=== PATIENT | male | born 1990 | race Two or more races ===

== ENCOUNTER 2019-01-23 08:13 | Emergency (ER) | payer OTHER ==
[~2019-01-23] VITALS: Ht 185.4 cm; Wt 127.0 kg
[2019-01-23] MEDS ORDERED: KETOROLAC TROMETHAMINE INJ 30 MG/ML VIAL ONE (08:29)
[2019-01-23] MEDS ORDERED: ONDANSETRON HCL/PF 4 MG/2 ML VIAL ONE (08:29)
[2019-01-23] MEDS ORDERED: IV NS 0.9% 1,000 ML BAG IV ONE (08:30)
[2019-01-23] MEDS ORDERED: KETOROLAC TROMETHAMINE INJ 30 MG/ML VIAL IV ONE (08:30)
[2019-01-23] MEDS ORDERED: ONDANSETRON HCL/PF 4 MG/2 ML VIAL IVP ONE (08:30)
--- NOTE | 2019-01-23 08:45 | NUR ---
pt brought in from [facility] home for c/c of lwer back pain radiating to scotal area pt has a history of kidney stones. piv placed medication and fluid given labs sent for processing ultra sound at bedside, pt accompanied with parent pt alert with orientation x 4.
[2019-01-23 08:49] LABS: BASOPHILS % (AUTO) 0.4 % (0.0-2.0); EOSINOPHILS % (AUTO) 0.4 % (0.0-6.0); HEMATOCRIT 45 % (39-51); HEMOGLOBIN 15.1 g/dL (13.5-17.5); MEAN CORPUSCULAR HGB CONC 33 g/dl (31.0-36.0); MEAN CORPUSCULAR VOLUME 89 fL (80-96); MONOCYTES # (AUTO) 0.4 /CMM (0.1-1.30); MONOCYTES % (AUTO) 5.3 % (2.0-12.0); NEUTROPHILS # (AUTO) 6.9 /CMM (1.8-8.9); NEUTROPHILS % (AUTO) 81.9 % (43.0-81.0); PLATELET COUNT (AUTO) 192 /CMM (150-450); RED BLOOD CELL COUNT(AUTO) 5.11 MIL/uL (4.5-6.0); WHITE BLOOD COUNT (AUTO) 8.4 K/uL (4.3-11.0)
[2019-01-23 08:59] LABS: CALCIUM, SERUM 9.1 mg/dL (8.5-10.1); POTASSIUM 3.7 mmol/L (3.5-5.1)
[2019-01-23 09:04] LABS: ALBUMIN 3.8 g/dL (3.4-5.0); BILIRUBIN,DIRECT 0.1 mg/dL (0.0-0.2); BILIRUBIN,TOTAL 0.3 mg/dL (0.2-1.0); TOTAL PROTEIN, SERUM 7.7 g/dL (6.4-8.2)
--- NOTE | 2019-01-23 09:33 | NUR ---
urine sent to lab
[2019-01-23 09:39] LABS: APPEARANCE,URINE Slightly Cloudy (CLEAR); BILIRUBIN,URINE Negative (NEGATIVE); BLOOD, URINE Large Ery/uL (NEGATIVE); COLOR,URINE Yellow (YELLOW); KETONES,URINE Negative (NEGATIVE); LEUKOCYTE ESTERASE ,URINE Negative (NEGATIVE); NITRITE, URINE Negative (NEGATIVE); PROTEIN,URINE 100 mg/dl (NEGATIVE); UGLUCOSE Negative (NEGATIVE); UROBILINOGEN,URINE 0.2 EU/dL (0.2)
[2019-01-23 09:52] LABS: BACTERIA,URINE None seen /HPF (None Seen); RBC,URINE 80-100 /HPF (0-2); SQUAMOUS EPITHELIAL CELL,UR Few /HPF (None Seen); WBC,URINE 0-3 /HPF (0-3)
[2019-01-23] MEDS ORDERED: TAMSULOSIN 0.4 MG CAP.SR.24H PO ONE (10:00)
[2019-01-23] MEDS ORDERED: TAMSULOSIN 0.4 MG CAP.SR.24H ONE (10:00)
--- NOTE | 2019-01-23 10:01 | NUR ---
pt discharged to home given urine strainer and follow up with urologist pt also given sterile specimen cup to place samlpe. pt given aci piv remonved with tip intact
[2019-01-23 10:08] VITALS: BP 112/80
== END 2019-01-23 10:09 | disposition home or self-care (01) ==
LOC: ER 08:16
DX: N20.0 Calculus of kidney (principal)
CPT/HCPCS: 36415; 76700; 80048; 80076; 81001; 83690; 85025; 96361; 96374; 96375; 99284; A4606; J1885; J2405; J7030; 81000-TC

== ENCOUNTER 2020-08-04 19:52 | Emergency (ER) | payer OTHER ==
[~2020-08-04] VITALS: Ht 180.3 cm; Wt 128.4 kg
--- NOTE | 2020-08-04 20:12 | NUR ---
PATIENT CAME TO ER BED 11 C/O DIZZINESS SINCE TODAY. PATIENT STATES THAT HE WAS AT WORK TODAY WHEN HE FELT HIS LIPS TINGLING AND HIS LEFT ARM NUMB. PATIENT IS AAOX4 NO SOB. BREATHING EVENLY AND UNLABORED ON ROOM AIR. CONNECTED TO THE MONITOR.
[2020-08-04] MEDS ORDERED: IV NS 0.9% 1,000 ML BAG IV ONE (20:30)
[2020-08-04] MEDS ORDERED: LORAZEPAM 1 MG TABLET PO ONE (20:30)
[2020-08-04] MEDS ORDERED: LORAZEPAM 1 MG TABLET ONE (20:34)
[2020-08-04 20:59] LABS: BASOPHILS % (AUTO) 0.2 % (0.0-2.0); EOSINOPHILS % (AUTO) 0.2 % (0.0-6.0); HEMATOCRIT 44 % (39-51); HEMOGLOBIN 14.8 g/dL (13.5-17.5); LYMPHOCYTES # (AUTO) 0.9 /CMM (0.8-4.8); LYMPHOCYTES % (AUTO) 8.9 % (20.0-44.0); MEAN CORPUSCULAR HGB CONC 34 g/dl (31.0-36.0); MEAN CORPUSCULAR VOLUME 88 fL (80-96); MONOCYTES # (AUTO) 0.7 /CMM (0.1-1.30); MONOCYTES % (AUTO) 6.3 % (2.0-12.0); NEUTROPHILS % (AUTO) 84.4 % (43.0-81.0); PLATELET COUNT (AUTO) 216 /CMM (150-450); RED BLOOD CELL COUNT(AUTO) 4.95 MIL/uL (4.5-6.0); WHITE BLOOD COUNT (AUTO) 10.6 K/uL (4.3-11.0)
[2020-08-04 21:10] LABS: CALCIUM, SERUM 9.1 mg/dL (8.5-10.1); CREATININE 1.1 mg/dL (0.6-1.3); POTASSIUM 3.5 mmol/L (3.5-5.1)
--- NOTE | 2020-08-04 22:27 | NUR ---
IV removed. Catheter intact and site benign. Pressure and 4x4 applied to site. No bleeding noted.
--- NOTE | 2020-08-04 22:27 | NUR ---
Patient discharged to home in stable condition. Written and verbal after care instructions given. Patient verbalizes understanding of instruction.
[2020-08-04 22:28] VITALS: BP 128/77
== END 2020-08-04 22:28 | disposition home or self-care (01) ==
LOC: ER 19:56
DX: F41.9 Anxiety disorder, unspecified (principal); R42 Dizziness and giddiness; Z87.442 Personal history of urinary calculi
CPT/HCPCS: 36415; 70450; 80048; 85025; 93005; 96360; 99285; J7030

== ENCOUNTER 2020-08-25 23:43 | Emergency (ER) | payer OTHER ==
[~2020-08-25] VITALS: Ht 180.3 cm; Wt 124.7 kg
[2020-08-26 00:25] VITALS: BP 133/77
[2020-08-26] MEDS ORDERED: FLUORESCEIN SODIUM OPHTH 1 EA STRIP ONE (00:36)
[2020-08-26] MEDS ORDERED: TETRACAINE HCL 0.5% OPHTALMIC 15 ML BOTTLE OP ONE (01:00)
[2020-08-26] MEDS ORDERED: FLUORESCEIN SODIUM OPHTH 1 EA STRIP OP ONE (01:00)
== END 2020-08-26 00:51 | disposition home or self-care (01) ==
LOC: ER 23:54
DX: H53.8 Other visual disturbances (principal); Z87.442 Personal history of urinary calculi